=== PATIENT | female | born 1995 | race Caucasian/White ===

== ENCOUNTER 2025-08-10 02:24 | Emergency (ER) | payer MEDICAID ==
[~2025-08-10] VITALS: Ht 167.6 cm; Wt 77.0 kg
[2025-08-10 02:29] VITALS: O2SAT 97
[2025-08-10 02:47] LABS: BASOPHILS % 0.5 % (0.0-2.0); EOSINOPHILS % 1.9 % (0.0-5.0); HEMATOCRIT. 39.2 % (36.0-48.0); HEMOGLOBIN. 13.0 g/dL (12.0-16.0); LYMPHOCYTES % 35.0 % (20.0-50.0); MEAN PLATELET VOLUME 8.8 fl (7.4-10.4); MONOCYTES % 7.8 % (2.0-8.0); NEUTROPHILS % 54.8 % (40.0-76.0); PLATELET 272 x1000/uL (130-400); RED BLOOD CELL COUNT 4.94 mill/uL (4.2-5.4); RED CELL DISTRIBUTION WIDTH 14.3 % (11.6-14.6)
[2025-08-10 03:02] LABS: CREATININE 0.7 mg/dL (0.6-1.0); UREA NITROGEN BLOOD 11 mg/dL (9-23)
[2025-08-10 03:03] LABS: ETHANOL BLOOD < 10 mg/dL (<10)
[2025-08-10 03:04] LABS: ASPARTATE AMINOTRANSFERASE 27 IU/L (<34); BILIRUBIN DIRECT < 0.1 mg/dL (<=3.0); BILIRUBIN TOTAL 0.3 mg/dL (0.1-1.0)
[2025-08-10 03:05] LABS: PROTEIN TOTAL 7.2 g/dL (6.0-8.3)
[2025-08-10 03:27] LABS: HCG SCREEN NEGATIVE
[2025-08-10] MEDS: MAGNESIUM/ALUMINUM HYDROXIDE/SIMETHICONE 30ML UDC PO ONE (03:31)
[2025-08-10] MEDS: VISCOUS LIDOCAINE 2% 15 ML UDC MM ONE (03:32)
[2025-08-10] MEDS: ONDANSETRON HCL 4MG/2ML INJ IV ONE (03:32)
[2025-08-10] MEDS: ACETAMINOPHEN 500MG TABLET PO ONE (03:32)
[2025-08-10] MEDS: SODIUM CHLORIDE 0.9% 1,000 ML IV ONE (03:32)
[2025-08-10] MEDS: METOCLOPRAMIDE HCL 10MG/2ML VIAL IV ONE (03:49)
[2025-08-10] MEDS: MORPHINE SULFATE 4 MG/ML INJ (FOR IV/IM USE) IV ONE (03:51)
[2025-08-10] MEDS: IOHEXOL-300 100 ML BOTTLE ONE (04:48)
[2025-08-10] MEDS ORDERED: SUCR1TAB30 MT (05:05)
[2025-08-10] MEDS ORDERED: METO-293 MT (05:05)
[2025-08-10] MEDS ORDERED: ACET-2708 MT (05:05)
[2025-08-10 05:34] VITALS: BP 82/55; PULSE 72; RESP 15; TEMP 36.5; O2SAT 97
== END 2025-08-10 05:42 | disposition home or self-care (01) ==
LOC: ER 02:24 → CMPBEDREQ 08:53
DX: K29.70 Gastritis, unspecified, without bleeding (principal); B96.81 Helicobacter pylori [H. pylori] as the cause of diseases classified elsewhere; Z79.899 Other long term (current) drug therapy
CPT/HCPCS: 80076; 80048; 80320; 84703; 83690; 85025; 36415; 74177; 76705; 96361; 96374; 96375; 99285; Q9967; J2765; J2405; J2270; J7030; Z7610 ×4; A4606; G0480